=== PATIENT | female | born 1930 | race Caucasian/White ===

== ENCOUNTER → 2016-10-03 15:06 | Outpatient (CLI) | payer MEDICARE ==
[~2016-10-03 15:06] MED LIST: BYSTOLIC2.5 MG PO; CALCIUM 500 + D1 TAB PO; ECOTRIN325 MG PO; ELIQUIS5 MG PO; MULTIPLE VITAMI1 TA1 PO; OMEPRAZOLE20 M1 PO; OXYCODONE HCL5 MG PO; PEPCID20 MG PO; VITAMIN D31000 UNIT PO; ZOCOR20 MG PO
[2016-10-24 12:33] VITALS: BMI 31.2
== END | disposition home or self-care (01) ==
LOC: D.LABREF 15:06
DX: M17.9 Osteoarthritis of knee, unspecified (principal); Z11.8 Encounter for screening for other infectious and parasitic diseases

== ENCOUNTER 2016-10-18 09:00 | Inpatient (IN) | payer MEDICARE ==
[~2016-10-18] VITALS: Ht 162.6 cm; Wt 82.6 kg
[~2016-10-18 09:00] MED LIST changes: -ELIQUIS5 MG PO; -OXYCODONE HCL5 MG PO
[2016-10-18 10:15] LABS: BASOPHILS 0.5 % (0.0-2.0); HEMATOCRIT 42.7 % (36.0-48.0); HEMOGLOBIN 13.6 g/dL (12-16); IMMATURE GRANULOCYTES 0.2 % (0-5); LYMPHOCYTES 26.8 % (15-50); MCH 32.9 pg (26.0-34.0); MCHC 31.9 g/dL (31.0-37.0); MCV 103.1 fL (80.0-100.0); MEAN PLATELET VOLUME 12.8 fL (7.4-10.4); NEUTROPHILS 59.5 % (40-80); PLATELET COUNT 167 10x3/uL (130-400); RBC 4.14 10x6/uL (4.00-5.40); RDW 12.2 % (11.5-14.5); WBC 5.8 10x3/uL (4.8-10.8)
[2016-10-18 10:20] LABS: ANION GAP 12.7 mmol/L (8-16); CALCIUM 8.9 mg/dL (8.5-10.1); CARBON DIOXIDE 29.3 mmol/L (21.0-32.0); CREATININE - SERUM 0.8 mg/dL (0.6-1.3)
[2016-10-18 10:26] LABS: APPEARANCE CLEAR (CLEAR); BILIRUBIN NEGATIVE (NEGATIVE); COLOR YELLOW (YELLOW); GLUCOSE NEGATIVE (NEGATIVE); KETONE NEGATIVE (NEGATIVE); LEUKOCYTE ESTERASE NEGATIVE (NEGATIVE); NITRITE NEGATIVE (NEGATIVE); PROTEIN NEGATIVE (NEGATIVE); UROBILINOGEN NORMAL (NORMAL)
[2016-10-18 11:01] LABS: INR 1.03 (0.85-1.17); PROTIME 13.4 SECONDS (11.6-15.0)
[2016-10-23] VITALS (13 sets, daily range): BP systolic 110–138; BP diastolic 37–81; BMI 31.3
--- NOTE | 2016-10-23 07:29 | NUR ---
LEFT FOOT AND LEG WASHED WITH HIBICLENS AND ALCOHOL PRIOR TO PREP PER D.N.
--- NOTE | 2016-10-23 09:07 | NUR ---
PT SEEN AND ASSESSED FROM PACU. SHEFALI WRAP NOTED TO LEFT LEG FROM MID THIGHT TO FOOT. ABLE TO MOVE TOES FREELY-PINK AND WARM. NO COMPLAINTS OF PAIN AT PRESENT. STATES SHE IS COMFORTABLE AT MOMENT. FAMILY AT BEDSIDE. BED ALARM ON FOR SAFETY
--- NOTE | 2016-10-23 18:12 | NUR ---
PT HAS NO COMPLAINTS AT PRESENT. CURRENTLY IN CPM MACHINE AND TOLERATING WELL. FAMILY AT BEDSIDE. BED ALARM ON FOR SAFETY
--- NOTE | 2016-10-23 19:30 | NUR ---
RECIEVED SHIFTG REPORT. PT IS LYING IN BED. ALERT AND ORIENTED AND ABLE TO VERBALIZE NEEDS. IV IS PATENT AND FLUIDS ARE RUNNING PER ORDER. CPM ON. SCD'S ON. DRESSING TO LEFT KNEE C/D/I. PT DENIES ANY PAIN AT THIS TIME. NO NEEDS ARE VERBALIZED AT THIS TIME. WILL CONTINUE TO MONITOR. SIDE RAILS ARE UP X 2. BED IS IN LOWEST POSITION. BED ALARM IS ON FOR SAFETY. CALL LIGHT IS WITHIN REACH.
--- NOTE | 2016-10-23 21:59 | NUR ---
SHIFT ASSESSMENT COMPLETED. NIGHT MEDS GIVEN WITH NO PROBLEMS. NO NEEDS ARE VOICED. WILL MONITOR. SIDE RAILS X 2. BED LOW. BED ALARM ON. CALL LIGHT IN REACH.
[2016-10-24 05:00] VITALS: BP 155/61
[2016-10-24 05:50] LABS: BASOPHILS 0.1 % (0.0-2.0); EOSINOPHILS 0.2 % (0-7); HEMATOCRIT 34.4 % (36.0-48.0); IMMATURE GRANULOCYTES 0.2 % (0-5); LYMPHOCYTES 14.7 % (15-50); MCH 32.6 pg (26.0-34.0); MCV 102.1 fL (80.0-100.0); MEAN PLATELET VOLUME 12.5 fL (7.4-10.4); MONOCYTES 8.6 % (2-11); NEUTROPHILS 76.2 % (40-80); PLATELET COUNT 156 10x3/uL (130-400); RBC 3.37 10x6/uL (4.00-5.40); RDW 12.2 % (11.5-14.5); WBC 10.3 10x3/uL (4.8-10.8)
[2016-10-24 06:00] LABS: ALBUMIN 3.1 g/dL (3.4-5.0); ANION GAP 12.8 mmol/L (8-16); BILIRUBIN - TOTAL 0.4 mg/dL (0.2-1.3); CALCIUM 8.5 mg/dL (8.5-10.1); CREATININE - SERUM 0.9 mg/dL (0.6-1.3); POTASSIUM - SERUM 3.8 mmol/L (3.5-5.1); PROTEIN - SERUM 5.9 g/dL (6.4-8.2)
[2016-10-24 08:11] VITALS: BP 134/50
--- NOTE | 2016-10-24 08:12 | NUR ---
PT SEEN AND ASSESSED. NO COMPLAINTS EXCEPT FOR PAIN. KNOWS HAD PAIN PILL AT 0500 AND DUE AGAIN AT 0900-STATES WILL WAIT. CURRENTLY IN CPM MACHINE. LUNCHS CLEAR. BED ALARM ON FOR SAFETY. CALL LIGHT IN REACH. LEFT LEG WRAPPED FROM MID THIGH TO TOES. ABLE TO MOVE TOES FREELY-WARM AND DRY
--- NOTE | 2016-10-24 10:49 | NUR ---
WOUND CARE CONSULT: PT IS S/P LEFT TKA (10/23/16) BY DR. HERNANDES. NO CHRONIC WOUNDS NOTED. WILL MONITOR NEEDED.
--- NOTE | 2016-10-24 11:00 | NUR ---
* Is the patient Alert and Oriented? Yes 0 * How many steps to enter\\exit or inside your home? 3 0 * PCP Dr. Bowles 0 * Pharmacy [facility] [address] 0 * Preadmission Environment Home with Family 0 * ADLs Independent 0 * Equipment Elevated [place] Seat 0 * List name and contact numbers for known caregivers / representatives who currently or will assist patient after discharge: Son - Med Peterson [phone] 0 * Additional services required to return to the preadmission environment? Yes 0 * Can the patient safely return to the preadmission environment? Yes 0 * Has this patient been hospitalized within the prior 30 days at any hospital? No 0 10/24/2016 10:53 DCP: Discharge Planning Patient Name: ROBIN PETERSON Admission Status: Elective Accout number: [id number] Admission Date: 10-23-2016 : 1930 Admission Diagnosis: Attending: MADELAINE Current LOS: 1 Anticipated DC Date: 10-25-2016 Planned Disposition: Outpatient PT\\OT Primary Insurance: MEDICARE A & B Discharge Planning Comments: CM met with patient to assess dc plans/needs. Patient states she lives at home with her adult son, Med. Her lives at the [facility]. Prior to admission, patient was independent with all ADL's & IADL's. She has a toilet seat riser at home. A rolling walker has been ordered through [facility] by MD office prior to admission - however, patient moved to [place] from [place] and has not changed her address with [facility], therefor, her [facility] will only approve DME from a "local" provider in [place]. Discussed with patient & with son, Med. Med will purchase a standard rolling walker & bring to hospital prior to discharge. Patient has chosen [facility] for outpatient physical therapy. Appt. scheduled 10/26 @ 1030. Anticipate dc tomorrow afternoon. CM will follow. Merchandising Consultant: Olga Stephens
[2016-10-24 12:13] VITALS: BP 124/51
[2016-10-24 12:33] VITALS: Ht 162.6 cm; Wt 82.6 kg
[2016-10-24 15:59] VITALS: BP 116/42
--- NOTE | 2016-10-24 18:07 | NUR ---
PT HAS NO COMPLAINTS AT PRESENT. PLACED IN CPM MACHINE AND TOLERATING WELL. CALL LIGHT IN REACH. BED ALARM ON FOR SAFETY
[2016-10-24 19:00] VITALS: BP 119/52
--- NOTE | 2016-10-24 19:15 | NUR ---
RECIEVED SHIFT REPORT. PT IS LYING IN BED. ALERT AND ORIENTED AND ABLE TO VERBALIZE NEEDS. IV IS PATENT AND SALINE LOC AT THIS TIME. CPM ON. SCD'S ON. DRESSING TO LEFT KNEE C/D/I. PT IS AMBULATORY WITH ASSISTANCE. PT STATES PAIN IS 7/10. NO NEEDS ARE VERBALIZED AT THIS TIME. WILL CONTINUE TO MONITOR. SIDE RAILS ARE UP X 2. BED IS IN LOWEST POSITION. BED ALARM IS ON FOR SAFETY. CALL LIGHT IS WITHIN REACH.
--- NOTE | 2016-10-24 22:12 | NUR ---
SHIFT ASSESSMENT COMPLETED. NIGHT MEDS GIVEN WITH NO PROBLEMS. PT C/O PAIN 05/09. ADMINISTERED PRESCRIBED PRN OXY IR PER ORDER. NO FURTHER NEEDS AT THIS TIME. WILL MONITOR. SIDE RAILS X 2. BED LOW. BED ALARM ON. CALL LIGHT IN REACH.
[2016-10-25 05:17] LABS: BASOPHILS 0.2 % (0.0-2.0); EOSINOPHILS 4.1 % (0-7); HEMATOCRIT 30.8 % (36.0-48.0); HEMOGLOBIN 9.9 g/dL (12-16); IMMATURE GRANULOCYTES 0.2 % (0-5); LYMPHOCYTES 14.3 % (15-50); MCH 33.2 pg (26.0-34.0); MCHC 32.1 g/dL (31.0-37.0); MCV 103.4 fL (80.0-100.0); MEAN PLATELET VOLUME 12.7 fL (7.4-10.4); MONOCYTES 8.6 % (2-11); NEUTROPHILS 72.6 % (40-80); PLATELET COUNT 130 10x3/uL (130-400); RBC 2.98 10x6/uL (4.00-5.40); RDW 12.5 % (11.5-14.5); WBC 9.4 10x3/uL (4.8-10.8)
[2016-10-25 05:41] LABS: ALBUMIN 2.8 g/dL (3.4-5.0); ANION GAP 9.5 mmol/L (8-16); BILIRUBIN - TOTAL 0.48 mg/dL (0.2-1.3); CALCIUM 8.3 mg/dL (8.5-10.1); CREATININE - SERUM 0.8 mg/dL (0.6-1.3); POTASSIUM - SERUM 3.5 mmol/L (3.5-5.1); PROTEIN - SERUM 5.7 g/dL (6.4-8.2)
--- NOTE | 2016-10-25 07:00 | NUR ---
REPORT RECIEVED ASSUMED CARE. PATIENT IN BED WITH IV INTACT. NO COMPLAINTS. CPM AT THIS TIME. SCDS ON AT THIS TIME. CALL LIGHT WITHIN REACH.
--- NOTE | 2016-10-25 07:00 | NUR ---
REPORT RECIEVED ASSUMED CARE. PATIENT IN BED WITH IV INTACT. NO COMPLAINTS AT THIS TIME. CALL LIGHT WITHIN REACH.
[2016-10-25 07:59] VITALS: BP 127/59
--- NOTE | 2016-10-25 08:00 | NUR ---
ASSESSMENT COMPLETE, VS STABLE. NO COMPLAINTS AT THIS TIME. DRESSING TO KNEE CLEAN AND DRY. IV INTACT. AWAITING PT. CALL LIGHT WITHIN REACH.
--- NOTE | 2016-10-25 08:25 | OP ---
PATIENT NAME: ROBIN MANCIA MEDICAL RECORD: [id number] :[birth year] LOCATION:D[id number] ADMISSION DATE:10/23/16 SURGEON: CARMENCITA HINKLE MD DATE OF OPERATION: 10/23/2016 PREOPERATIVE DIAGNOSIS: Left knee degenerative joint disease. POSTOPERATIVE DIAGNOSIS: Left knee degenerative joint disease. PROCEDURE PERFORMED: Left total knee arthroplasty. SURGEON: Stephen Hinkle MD ANESTHESIA: General with a block for postop pain. TOURNIQUET TIME: 38 minutes. ESTIMATED BLOOD LOSS: Minimal. CONDITION: She tolerated the procedure well, was transferred to the recovery room in stable condition at termination of procedure. INDICATIONS: This is a pleasant 85-year-old female with advanced degenerative changes of her left knee. She presents for a left knee replacement after having failed other treatments. She tried injections, medications, therapy. This is not resolving her pain. She presents for a left total knee arthroplasty. We discussed risks, benefits, alternatives including blood loss, scar, pain, need for further procedure, anesthesia risk, nerve, artery and vein injuries, PE, DVT, . She understood and wished to proceed. OPERATIVE REPORT: The patient was taken to the operating room and placed in supine position. General anesthesia was obtained. Left knee was confirmed to be the correct knee. She did receive Ancef per protocol. She was prepped and draped in the normal fashion followed by secondary ChloraPrep and Ioban dressing placement. Once this was accomplished, she then had an exsanguination with an Attila wrap and elevation of the tourniquet to 350. Once this was accomplished, a midline incision was made followed by a medial parapatellar incision. Fat pad was excised. Medial soft tissue sleeve was elevated. The patella was everted. Femur was entered with a drill. The guide was placed. A distal femoral cut was made. Distal femur was sized at a 65. The rest of the distal femoral cuts were then made. I subluxed the tibia forward and placed a guide and made a proximal tibial cut. Once the proximal tibial cut was made, I then proceeded to place both components, take it through a range of motion and then marked for rotation. I then punched for a 71 tibia. I took off the back side of the patella, I measured this for a 31 and drilled the 3 peg holes for a 31 patella. I then proceeded to copiously irrigate. Following which, I cemented into place a 65 femur, 71 tibia, 12 poly trial was placed and a 31 three peg hole 3 peg patellar button was placed. Once this was accomplished, she was copiously irrigated with the leg held in extension while the cement dried. Excess cement was removed, following which a final 12 poly was placed. Once this was accomplished, I then proceeded to irrigate again and then closed with #1 barbed PDS followed by 2-0 Vicryl, then aisha. She tolerated this well, was awakened and transferred to recovery room in stable condition, having tolerated procedure well. TRANSINT:[id number] Voice Confirmation ID: [id number] DOCUMENT ID: [id number] OPERATIVE REPORT [id number] ROBIN MANCIA, CARMENCITA SAEED MD at 0825 CC: [id number] DICTATION DATE: 10/23/16 0813 LAW FIRM PARTNER: 10/23/16 0920 ADM IN [facility] [address] [place] [address]
[2016-10-25] MEDS ORDERED: ELIQUIS5 MG PO (10:38)
[2016-10-25] MEDS ORDERED: OXYCODONE HCL5 MG PO (10:41)
--- NOTE | 2016-10-25 11:00 | NUR ---
PATIENT SITTING UP IN CHAIR WITH NO COMPLAINTS. CALL LIGHT WITHIN REACH.
--- NOTE | 2016-10-25 13:50 | NUR ---
10/25/2016 13:48 DCP: Discharge Planning Patient Name: ROBIN MANCIA Encounter No: [id number] : 1930 Primary Insurance: MEDICARE A & B Anticipated DC Date: 10-25-2016 Planned Disposition: Outpatient PT\OT External Planned Provider: [facility] DCP follow-up note: DC order rec'd. Patient has ambulated well, practiced going up and down stairs (3). Patient and family in agreement with discharge plan. No changes to plan. Olga Stephens
--- NOTE | 2016-10-25 14:43 | NUR ---
PATIENT IN BED WAITING ON DISCHARGE. NO COMPLAINTS OR SIGNS OF DISTRESS. CALL LIGHT WITHIN REACH.
--- NOTE | 2016-10-25 15:46 | NUR ---
PATIENT RECIEVED DISCHARGE INSTRUCTIONS. VERBALIZED UNDERSTANDING. NO QUESTIONS AT THIS TIME. IV REMOVED WITH CATH TIP INTACT. DRESSING TO LEFT KNEE CHANGED. SKY CLEAN AND DRY WITH NO DRAINAGE. NEW DRESSING APPLIED. FAMILY AT BEDSIDE. CALL LIGHT WITHIN REACH.
--- NOTE | 2016-10-31 07:00 | DS ---
PATIENT:ROBIN MANCIA :[birth year] MEDICAL RECORD: [id number] DISCHARGE SUMMARY ADMISSION DATE: 10/23/16 DISCHARGE DATE: 10/25/16 DATE OF ADMISSION: 10/23/2016. DATE OF DISCHARGE: 10/25/2016. ADMITTING DIAGNOSIS: Left knee degenerative joint disease. DISCHARGE DIAGNOSES: Left knee degenerative joint disease plus acute blood loss anemia. HISTORY OF PRESENT ILLNESS: Pleasant 85-year-old female with significant left knee DJD. She presents and undergoes a left total knee arthroplasty. She has done very well with this. It is felt that she can be discharged at this juncture to home. She will continue on total knee arthroplasty protocols and outpatient physical therapy. We will going to do an Eliquis for anticoagulation. She has pain medications. We discussed the importance of the wound care and the need to keep that wound incision very clean. I plan to see her back in our office in about 2 weeks and call if she is having any problems. TRANSINT:[id number] Voice Confirmation ID: [id number] DOCUMENT ID: [id number] CARMENCITA HERNANDES MD at 0700 CC: [id number] DICTATION DATE: 10/25/16 0819 RENTAL SALES AGENT: 10/25/16 0845 DIS IN 10/25/16 [id number] [place] [address]
== END 2016-10-25 15:53 | disposition home or self-care (01) | DRG 470 ==
LOC: D.MS 10-23 05:30 → D.SDCHOLD 10-23 05:30 → D.MS 10-23 08:10 → D.SDCHOLD 10-23 09:00 → D.MS 10-25 15:53
PROVIDERS: Family Medicine; ADMIT Orthopaedic Surgery Sports Medicine
PROC: 0SRD0J9 Replacement of Left Knee Joint with Synthetic Substitute, Cemented, Open Approach (ICD-10-PCS; principal; 2016-10-23 07:15)
DX: M17.12 Unilateral primary osteoarthritis, left knee (principal); D62 Acute posthemorrhagic anemia; Z95.0 Presence of cardiac pacemaker; I10 Essential (primary) hypertension

== ENCOUNTER → 2016-12-24 19:19 | Outpatient (CLI) | payer MEDICARE ==
[2016-10-24 12:33] VITALS: BMI 31.2
[~2016-12-24 19:19] MED LIST changes: +ELIQUIS5 MG PO; +OXYCODONE HCL5 MG PO
== END | disposition home or self-care (01) ==
LOC: D.SLEEP 19:19
DX: G47.33 Obstructive sleep apnea (adult) (pediatric) (principal)

== ENCOUNTER → 2017-01-08 09:56 | Outpatient (CLI) | payer MEDICARE ==
[2016-10-24 12:33] VITALS: BMI 31.2
== END | disposition home or self-care (01) ==
LOC: D.RT 09:56
DX: R06.00 Dyspnea, unspecified (principal)